=== PATIENT | female | born 1970 | race Caucasian/White ===

== ENCOUNTER 2017-12-28 00:23 | Emergency (ER) | payer OTHER ==
[2017-12-28] MEDS: PROMETHAZINE/DM (CUP) PO (01:08)
== END 2017-12-28 01:34 | disposition home or self-care (01) ==
LOC: FTE 00:23
DX: J30.9 Allergic rhinitis, unspecified (principal)
CPT/HCPCS: 99283; Z7502

== ENCOUNTER 2018-02-11 23:52 | Emergency (ER) | payer OTHER ==
[2018-02-12] MEDS ORDERED: KETOROLAC 30 MG INJ IM (00:37)
[2018-02-12] MEDS: ASPIRIN 325 MG TAB PO (00:56)
[2018-02-12 01:02] LABS: ADD MAN DIFF? NO
[2018-02-12 01:07] LABS: BASOPHIL # 0.1 10^3/ul (0.0-0.1); BASOPHILS % 0.6 % (0.0-2.0); EOSINOPHILS # 0.3 10^3/ul (0.0-0.5); EOSINOPHILS % 3.4 % (0.0-7.0); HEMATOCRIT 35.9 % (37.0-47.0); HEMOGLOBIN 12.7 g/dl (12.0-16.0); LYMPHOCYTES # 2.7 10^3/ul (0.8-2.9); LYMPHOCYTES % 34.3 % (15.0-51.0); MEAN CORPUSCULAR HEMOGLOBIN 29.3 pg (29.0-33.0); MEAN CORPUSCULAR HGB CONC 35.4 g/dl (32.0-37.0); MEAN CORPUSCULAR VOLUME 82.7 fl (82.0-101.0); MONOCYTE # 0.7 10^3/ul (0.3-0.9); MONOCYTES % 8.4 % (0.0-11.0); NEUTROPHIL # 4.2 10^3/ul (1.6-7.5); PLATELET COUNT 266 10^3/UL (140-415); RED BLOOD COUNT 4.34 10^6/ul (4.20-5.40); RED CELL DISTRIBUTION WIDTH 15.8 % (11.5-14.5)
[2018-02-12 01:26] LABS: ALANINE AMINOTRANSFERASE 19 IU/L (13-69); ALBUMIN 4.3 g/dl (3.3-4.9); ALBUMIN/GLOBULIN RATIO 1.38; ALKALINE PHOSPHATASE 86 IU/L (42-121); ANION GAP 14 (5-13); ASPARTATE AMINO TRANSFERASE 22 IU/L (15-46); BILIRUBIN,INDIRECT 0.1 mg/dl (0-1.1); BILIRUBIN,TOTAL 0.1 mg/dl (0.2-1.3); BLOOD UREA NITROGEN 13 mg/dl (7-20); CALCIUM 9.1 mg/dl (8.4-10.2); CARBON DIOXIDE 22 mmol/L (21-31); CHLORIDE 104 mmol/L (97-110); CREATININE 0.59 mg/dl (0.44-1.00); Estimated GFR > 60 mL/min (>60); GLUCOSE 130 mg/dl (70-220); INR 0.92; POTASSIUM 3.7 mmol/L (3.5-5.1); PROTIME 12.4 Sec (11.9-14.9); SODIUM 140 mmol/L (135-144); TOTAL PROTEIN 7.4 g/dl (6.1-8.1)
[2018-02-12 01:27] LABS: PARTIAL THROMBOPLASTIN TIME 25.2 Sec (23.0-35.0)
[2018-02-12 01:37] LABS: TROPONIN-I < 0.012 ng/ml (0.000-0.120)
[2018-02-12] MEDS: CYCLOBENZAPRINE 10 MG TAB PO (03:10)
== END 2018-02-12 03:10 | disposition home or self-care (01) ==
LOC: FTE 23:52
DX: M25.512 Pain in left shoulder (principal); R07.9 Chest pain, unspecified
CPT/HCPCS: 71046; 80053; 81025; 84484; 85025; 85610; 85730; 93005; 99285-25

== ENCOUNTER 2018-05-31 12:52 | Emergency (ER) | payer SELFPAY, OTHER | END 2018-05-31 18:10 | disposition left against medical advice (07) | LOC: E/R 12:52 | DX: Z53.21 Procedure and treatment not carried out due to patient leaving prior to being seen by health care provider (principal) ==